=== PATIENT | female | born 1965 | race Caucasian/White ===

== ENCOUNTER 2019-06-21 12:24 | Outpatient (CLI) | payer OTHER, SELFPAY ==
--- NOTE | ~2019-06-21 | MM_ITS ---
EXAMINATION: MM stereotactic bx RT, Specimen Radiograph, Tissue Marker Clip Placement, Unilateral Niranjan mogram DATE: 06/21/2019 14:57 INDICATION: Abnormal mammogram: Upper-outer right breast microcalcifications. TECHNIQUE AND FINDINGS: The risks and potential benefits of the procedure were discussed with the patient and written informe d consent was obtained. Timeout procedure was performed. The patient was placed in the prone position on the dedicated stereotactic table with the right breast in craniocaudal compression, and the area of interest was localized and targeted utilizing digital imaging with stereotaxis. After sterile preparation of the skin, 1% lidocaine was utilized for local anesthesia at the skin pun cture site and 1% lidocaine with epinephrine was utilized for deeper local anesthesia/is about the bi opsy site. A 9G [employer] vacuum assisted biopsy needle was advanced to the level of the calcification o f interest from a cephalad/caudal/medial/lateral approach utilizing stereotactic guidance and a total of 16 tissue core biopsies were obtained. A specimen radiograph demonstrates that the calcifications of interest are included within the tissue cores. A tissue marker clip was then placed at the biopsy site. A digital mammographic exposure co nfirmed the successful deployment of the biopsy marker. The needle was removed and hemostasis was ac hieved. A sterile bandage was applied. The patient tolerated the procedure well and there is no manda dence of significant immediate complication. The patient was given verbal as well as written postpro cedural instructions prior to discharge from the department. Tissue cores were submitted to surgical pathology for histologic analysis. A 2-view right unilateral digital mammogram was obtained post procedure, demonstrating the tissue mar ker clip in expected position. IMPRESSION: 1. Successful stereotactic biopsy of right breast microcalcifications, followed by tissue marker cl ip placement. Please refer to pathology report for histologic analysis. Reviewed, dictated and finalized at [facility]. Reviewed, dictated and finalized at location A. OR DIGITAL DESIGNER IMPRESSION: 1. Successful stereotactic biopsy of right breast microcalcifications, follow ed by tissue marker clip placement. Please refer to pathology report for histo logic analysis.
--- NOTE | ~2019-06-21 | MM_ITS ---
MM post biopsy invasive RT DATE: 06/21/2019 14:43 INDICATION: Post stereotactic biopsy mammogram TECHNIQUE: Digital ML and cc views of right breast obtained following stereotactic breast biopsy COMPARISON: 06/21/2019 right breast stereotactic biopsy images FINDINGS: A biopsy marker is present in the mid to upper outer right breast. The microcalcifications of interest from a longer present within the breast. IMPRESSION: Successful removal of microcalcifications in the posterior aspect of the upper outer quad rant of the right breast by stereotactic biopsy, successful deployment of biopsy marker Reviewed, dictated and finalized at [facility]. Reviewed, dictated and finalized at location A. ARCH DIRECTOR IMPRESSION: Successful removal of microcalcifications in the posterior aspect o f the upper outer quadrant of the right breast by stereotactic biopsy, successf ul deployment of biopsy marker
--- NOTE | ~2019-06-21 | MM_ITS ---
MM stereotactic specimen RT DATE: 06/21/2019 14:43 INDICATION: Microcalcifications upper outer right breast TECHNIQUE: Digital mammographic exposure of stereotactic biopsy specimen tissue COMPARISON: 06/21/2019 stereotactic biopsy images FINDINGS: Multiple microcalcifications of interest are present within the specimen tissue IMPRESSION: Successful stereotactic biopsy yielding multiple microcalcifications of interest Reviewed, dictated and finalized at [facility]. Reviewed, dictated and finalized at location [facility]. L NET MAKER IMPRESSION: Successful stereotactic biopsy yielding multiple microcalcification s of interest
== END 2019-06-21 12:25 | disposition home or self-care (01) ==
PROVIDERS: PCP Family Medicine; Visit Provider Family Medicine
DX: R92.8 Other abnormal and inconclusive findings on diagnostic imaging of breast (principal)
CPT/HCPCS: 19081; 88305

== ENCOUNTER 2019-08-27 06:34 | Outpatient (CLI) | payer OTHER, SELFPAY ==
[2019-08-27 07:15] LABS: Hematocrit 40.7 % (37.0-47.0); Hemoglobin 13.2 g/dL (12.0-15.0); Mean Corpuscular HGB Conc 32.4 g/dl (32-36); Mean Corpuscular Hemoglobin 30.3 pg (26-34); Mean Corpuscular Volume 93.3 fl (80-100); Mean Platelet Volume 10.4 fl (7.4-10.4); Platelet Count Result 255 k/mm3 (150-375); Red Blood Count 4.36 M/mm3 (4.2-5.4); Red Cell Distribution Width 12.7 % (11.5-14.5); White Blood Count 5.5 K/mm3 (4.5-10.0)
[2019-08-27 07:29] LABS: Cholesterol 177 mg/dL (0-200); HDL Direct 49 mg/dL; Triglycerides 101 mg/dL (<150)
[2019-08-27 07:40] LABS: LDL Cholesterol Direct 98 mg/dL
== END 2019-08-27 06:35 | disposition home or self-care (01) ==
PROVIDERS: PCP Family Medicine; Visit Provider Family Medicine
DX: E78.1 Pure hyperglyceridemia (principal); E03.9 Hypothyroidism, unspecified; D50.9 Iron deficiency anemia, unspecified
CPT/HCPCS: 36415; 80061; 84443; 85027

== ENCOUNTER 2020-06-19 06:42 | Outpatient (CLI) | payer OTHER, SELFPAY ==
[2020-06-19 07:31] LABS: Hematocrit 40.7 % (37.0-47.0); Hemoglobin 13.6 g/dL (12.0-15.0); Mean Corpuscular HGB Conc 33.4 g/dl (32-36); Mean Corpuscular Hemoglobin 30.4 pg (26-34); Mean Corpuscular Volume 91.1 fl (80-100); Mean Platelet Volume 10.6 fl (7.4-10.4); Platelet Count Result 247 k/mm3 (150-375); Red Blood Count 4.47 M/mm3 (4.2-5.4); White Blood Count 5.1 K/mm3 (4.5-10.0)
[2020-06-19 07:39] LABS: Alanine Aminotransferase 28 U/L (4-35); Albumin Level 4.3 g/dL (3.5-5.1); Alkaline Phosphatase 51 U/L (38-126); Anion Gap 3 mmol/L (8-16); Aspartate Amino Transferase 32 U/L (14-36); Bilirubin,Total 0.6 mg/dL (0.2-1.3); Blood Urea Nitrogen 18 mg/dL (7-17); Calcium 8.9 mg/dL (8.4-10.2); Carbon Dioxide 29 mmol/L (22-30); Chloride 108 mmol/L (98-107); Cholesterol 172 mg/dL (0-200); Estimated Glomerular Filt Rate > 60; Glucose 97 mg/dL (65-105); HDL Direct 53 mg/dL; Potassium 4.7 mmol/L (3.4-5.0); Sodium 140 mmol/L (137-145); Triglycerides 105 mg/dL (<150)
[2020-06-19 07:50] LABS: LDL Cholesterol Direct 85 mg/dL
== END 2020-06-19 06:43 | disposition home or self-care (01) ==
PROVIDERS: Family Provider Family Medicine; PCP Family Medicine; Visit Provider Family Medicine
DX: D50.9 Iron deficiency anemia, unspecified (principal); E03.9 Hypothyroidism, unspecified; R73.03 Prediabetes
CPT/HCPCS: 36415; 80053; 80061; 85027

== ENCOUNTER 2020-06-25 07:32 | Outpatient (CLI) | payer OTHER, SELFPAY | END 2020-06-25 07:33 | disposition home or self-care (01) | PROVIDERS: PCP Family Medicine; Visit Provider Family Medicine | DX: E03.9 Hypothyroidism, unspecified (principal) | CPT/HCPCS: 36415; 84443 ==

== ENCOUNTER 2020-08-19 14:25 | Outpatient (CLI) | payer OTHER, SELFPAY | END 2020-08-19 14:26 | disposition home or self-care (01) | LOC: ANHAUDIO 14:27 | PROVIDERS: PCP Family Medicine; Referring Provider Family Medicine; Visit Provider Family Medicine | DX: H91.93 Unspecified hearing loss, bilateral (principal); H93.19 Tinnitus, unspecified ear | CPT/HCPCS: 92557; 92567 ==

== ENCOUNTER 2020-10-13 05:28 | Emergency (ER) | payer OTHER, SELFPAY ==
--- NOTE | ~2020-10-13 | XR_ITS ---
EXAMINATION: XR ankle LT min 3V DATE: 10/13/2020 06:11 INDICATION: Left ankle pain, initial encounter TECHNIQUE: Anteroposterior, lateral, mortise, and additional oblique view of the ankle were obtained. COMPARISON: None. FINDINGS: There is an acute, traumatic, closed, oblique fracture of the lateral malleolus at the leve l of the tibial plafond. Bone alignment is normal. There is lateral soft tissue swelling of ankle. No additional acute osseous findings are evident. A plantar calcaneal enthesophyte is noted. IMPRESSION: 1. Acute fracture of the lateral malleolus at the level of the tibial plafond and. Reviewed, dictated and finalized at location A. IMPRESSION: 1. Acute fracture of the lateral malleolus at the level of the tibial plafond a nd.
[2020-10-13 05:35] VITALS: BP 119/76; PULSE 71; RESP 16; TEMP 36.4; O2SAT 99
--- NOTE | 2020-10-13 05:49 | PC.NURSE ---
Hematoma to Lt check. Skin intact. No LOC. No neck pain. A/O x 3. No vision changes. No n/v. Pt with swelling to Lt ankle. No deformity. Minor abrasion to Lt knee without swelling or deformity. Brisk cap refill. Pt was going after her dog and fell down 3 stairs.
--- NOTE | 2020-10-13 05:53 | ED.FALL ---
HPI - Fall General Chief Complaint: Fall Stated Complaint: pt fell down 3 stairs chasing dog. pt hurt left a Time Seen by Provider: 10/13/20 05:42 History of Present Illness HPI Narrative: 55 yo female presents to the ED after a fall. She was chasing her dog when she tripped and fell down 3 stairs. She twisted her left ankle and has moderate pain and swelling at the latereal maleolus. She has been able to bear some weight and move the ankle. She also hit left knee. She has a small abrasion and minimal pain. She did strike her left cheek. She has a small bruise and nosignificant pain. No LOC headache, confusion blood thinners. Related Data Home Medications Medication Instructions Recorded Confirmed multivitamin 1 tablet PO DAILY 07/13/19 09/09/20 Allergies Allergy/AdvReac Type Severity Reaction Status Date / Time No Known Drug Allergies Allergy Unknown unknown Verified 09/09/20 16:10 shellfish derived Allergy Unknown unknown Verified 09/09/20 16:10 Review of Systems Review of Systems: All systems reviewed & are unremarkable except as noted in HPI and below Cardiovascular: Cardiovascular: Denies chest pain Respiratory: Respiratory: Denies dyspnea Neurologic: Denies confusion, Denies dizziness, Denies syncope, Denies headache(s), Denies numbness and Denies weakness Hematologic/Lymphatic: Hematologic/Lymphatic: Denies easy bleeding and Denies easy bruising PMFSH Past Medical History Medical History (Updated 10/13/20 @ 18:07 by Benoit Stokes MD) Hypertriglyceridemia Hypothyroidism (acquired) Prediabetes Family History Family History Mother Family history of malignant neoplasm of breast in first degree relative, Onset Age: 86 Hypertension, Onset Age: 86 Family history of cardiovascular disease, Onset Age: 86 Family history of kidney disease, Onset Age: 86 Family history of congestive heart failure, Onset Age: 86 Father Family history of Alzheimer's disease Social History Social History Smoking status: Never smoker Alcohol intake: current Exam Const: General: healthy appearing, no acute distress and alert Orientation/consciousness: patient oriented x3 HENMT: Other: small bruise and minimal swelling to left maxilla Eyes: EOM: EOMs intact bilaterally Neck: Neck: normal visual inspection Resp: Effort & Inspection: normal respiratory effort Auscultation: clear to auscultation bilaterally, no rales, no rhonchi and no wheezes Cardio: Jugular venous distension: no JVD Rate: regular rate Rhythm: regular rhythm Heart sounds: no murmurs Other: 2 + left DP, PT GI: GI Palp: Yes Soft to palpation and No Tenderness to palpation present (GI) Skin: General skin exam: normal color Other: abrasion to left knee Neuro: General: patient oriented x3 and moves all extremities Speech: normal speech Other: distal PMS intact Extrem: General: no edema Other: Swelling and tenderness to left lateral malleolus Psych: Appearance: well kempt Affect: normal affect Course Vital Signs Vital signs: Vital Signs Temperature 36.4 C 10/13/20 05:35 Pulse Rate 71 10/13/20 05:35 Respiratory Rate 16 10/13/20 05:35 Blood Pressure 119/76 10/13/20 05:35 Pulse Oximetry 99 10/13/20 05:35 Temperature 36.4 C 10/13/20 05:35 Pulse Rate 68 10/13/20 07:02 Respiratory Rate 18 10/13/20 07:02 Blood Pressure 124/71 10/13/20 07:02 Pulse Oximetry 98 10/13/20 07:02 Procedures Orthopedic Splinting/Casting Injury #1: Side: left Lower Extremity Injury Location: ankle Lower Extremity Immobilizer: posterior splint Splint: customized in ED OCL: short leg Pre-Procedure Neuro Vascular Exam: normal Post-Procedure Neuro Vascular Exam: normal MDM - Fall MDM Narrative Medical decision making narrative: Minimal hea
--- NOTE | 2020-10-13 06:45 | PC.NURSE ---
Splint applied to Lt ankle. Pt tolerated procedure well.
[2020-10-13 07:02] VITALS: BP 124/71; PULSE 68; RESP 18; O2SAT 98
== END 2020-10-13 07:02 | disposition home or self-care (01) ==
PROVIDERS: Emergency Provider Emergency Medicine; PCP Family Medicine
DX: S82.65XA Nondisplaced fracture of lateral malleolus of left fibula, initial encounter for closed fracture (principal); E03.9 Hypothyroidism, unspecified; R73.03 Prediabetes; E78.1 Pure hyperglyceridemia; W10.9XXA Fall (on) (from) unspecified stairs and steps, initial encounter
CPT/HCPCS: 29515; 73610; 99284

== ENCOUNTER 2020-10-23 14:41 | Outpatient (CLI) | payer OTHER, SELFPAY ==
[2020-10-23 16:55] LABS: Vitamin D 25 Hydroxy 34.5 ng/mL
== END 2020-10-23 14:42 | disposition home or self-care (01) ==
LOC: ANHLAB 14:42
PROVIDERS: PCP Family Medicine; Visit Provider Orthopaedic Surgery
DX: E55.9 Vitamin D deficiency, unspecified (principal)
CPT/HCPCS: 36415; 82306

== ENCOUNTER 2020-12-18 14:30 | Outpatient (RCR) | payer OTHER, SELFPAY | END 2020-12-18 23:59 | disposition home or self-care (01) | LOC: ANHAUDIO 14:30 | PROVIDERS: PCP Family Medicine; Visit Provider Family Medicine | DX: Z46.1 Encounter for fitting and adjustment of hearing aid (principal) | CPT/HCPCS: 99199; V5261 ==

== ENCOUNTER 2021-01-09 14:00 | Outpatient (RCR) | payer OTHER, SELFPAY ==
--- NOTE | 2020-12-10 15:20 | PTOPEVAL ---
Thank you for referring Gisell Schwab to [facility].? The patient is scheduled to be seen for therapy? 2 x/week for 4 weeks. Please review, sign, date and return this plan of care MARSHALL. I agree with and certify that the following plan of care is medically necessary. Referring Physician Date Attending Provider: Kadeem Soler MD Problem Diagnosis left malleolus fracture Onset 10/13/20 Additional Evaluation Detail She was walking down the steps at home when she rolled her ankle landing on the ground. She heard a pop in her ankle. She was placed in a boot, but non-weight bearing. Prior to injury she went to the park for walking and gardening at home. 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 She is Family returned to work on 12/01/20 since she was release to [employer]. She is limited with walking, steps, ankle motion. She has increased knee pain since walking with the boot. She has been performing HEP since 03/12. 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 Diagnostic Tests X-Rays For This Problem Yes: Acute fracture of the lateral malleolus at the level of the tibial plafond Pain Assessment Self Report Pain Assessment Left Ankle(s) Reported Pain Level 2 Lowest Pain Intensity 2 Greatest Pain Intensity 7 Lower Extremity Range of Motion Ankle/Foot Range of Motion Left Ankle Dorsiflexion With Knee Extension 0 - Active Ankle Plantarflexion Range of Motion - 35 Active Ankle Eversion Range of Motion - Active 0 Ankle Eversion Range of Motion - Passive 15 Ankle Inversion Range of Motion - Active 20 Ankle Inversion Range of Motion - 35 Passive Ankle/Toe Range of Motion Limitations Edema,Muscle Length tightness Pain,Soft Tissue restriction Foot/Toe Range of Motion Comments great toe ext: 25 dg, passive: 35 dg Lower Extremity Muscle Strength Testing Hip Strength Left Hip Flexion Strength 4+ Good + Hip Extension Strength 4 Good Hip Abduction Strength 3+ Fair + Knee Strength Left Knee Flexion Strength 4+ Good + Knee Extension Strength 4+ Good + Ankl
--- NOTE | 2021-01-09 16:01 | PTOPEVAL ---
Physical Therapy progress note/discharge note Thank you for referring Gisell Schwab to [facility].? Gisell has received 9 therapy visits to address ankle limitations following fracture. She demonstrates improved ankle motion, leg strength and ability to perform daily task. She has achieved her therapy goals. Will DC skilled therapy services at this time. Please review, sign, date and return this discharge summary MARSHALL. I agree with and certify that the following plan of care is medically necessary. Referring Physician Date Attending Provider: Kadeem Soler MD Problem ankle fracture Onset 10/13/20 Additional Evaluation Detail She was walking down the steps at home when she rolled her ankle landing on the ground. She heard a pop in her ankle. She was placed in a boot, but non-weight bearing. Prior to injury she went to the park for walking and gardening at home. Pain Assessment Left Ankle(s) Reported Pain Level 1 Pain Description Aching Lowest Pain Intensity 1 Greatest Pain Intensity 3 Lower Extremity Range of Motion Ankle/Foot Range of Motion Left Ankle Dorsiflexion With Knee Extension 8 - Active Ankle Plantarflexion Range of Motion - 50 Active Ankle Eversion Range of Motion - Active 25 Ankle Inversion Range of Motion - Active 34 Foot/Toe Range of Motion Comments great toe ext: 25 dg, passive: 35 dg Lower Extremity Muscle Strength Testing Hip Strength Left Hip Flexion Strength 5 Normal Hip Extension Strength 5 Normal Hip Abduction Strength 4- Good - Ankle Strength Left Ankle Dorsiflexion Strength 5 Normal Ankle Plantarflexion Strength 3+ Fair + Ankle Eversion Strength 5 Normal Ankle Inversion Strength 5 Normal Ankle Strength Comments no pain 10 orestes heel raises 3 partial range single heel raises Special Tests-Lower Extremity Trendelenburg Sign Positive Left,Positive Right Hip Special Test Comments single leg stance: right 26 sec, left 30 sec, slight decreased LE control tandem stance: right front: 30 sec, left 30 sec, improved control of trunk and LE Extremity Circumference Assessment Circumference Assessment Location Left Body Part Ankle Circumference Comments sup to lateral mal: 23 cm right and 22.5 cm left Stair Clim
== END 2021-01-12 11:52 | disposition home or self-care (01) ==
LOC: ANHPT 14:00
PROVIDERS: PCP Family Medicine; Visit Provider Orthopaedic Surgery
DX: S82.62XD Displaced fracture of lateral malleolus of left fibula, subsequent encounter for closed fracture with routine healing (principal)
CPT/HCPCS: 97035; 97110; 97112; 97140; 97161

== ENCOUNTER 2021-04-15 08:00 | Outpatient (RCR) | payer OTHER, SELFPAY | END 2021-04-15 23:59 | disposition home or self-care (01) | LOC: ANHAUDIO 08:00 | PROVIDERS: PCP Family Medicine; Visit Provider Family Medicine | DX: Z46.1 Encounter for fitting and adjustment of hearing aid (principal) | CPT/HCPCS: 99199 ==

== ENCOUNTER 2021-07-14 09:20 | Outpatient (CLI) | payer OTHER, SELFPAY ==
[2021-07-14 09:39] LABS: Basophils Absolute Auto 0.1 K/mm3 (0.0-0.1); Basophils Percent Auto 1.1 % (0.2-1.2); Eosinophils Absolute Auto 0.2 K/mm3 (0-0.3); Eosinophils Percent Auto 4.4 % (0-4.4); Hemoglobin 13.2 g/dL (12.0-15.0); Immature Granulocyte Absolute 0.01 K/mm3 (0.00-0.031); Immature Granulocyte Percent A 0.2 % (0-0.5); Lymphocytes Absolute Auto 1.65 K/mm3 (0.9-3.2); Lymphocytes Percent Auto 36.3 % (18.3-44.2); Mean Corpuscular HGB Conc 33.8 g/dl (32-36); Mean Corpuscular Hemoglobin 30.5 pg (26-34); Mean Corpuscular Volume 90.1 fl (80-100); Mean Platelet Volume 10.2 fl (7.4-10.4); Monocytes Absolute Auto 0.4 K/mm3 (0.1-0.6); Monocytes Percent Auto 9.7 % (2.6-8.5); Neutrophils Absolute Auto 2.2 K/mm3 (1.3-6.7); Neutrophils Percent Auto 48.3 % (45.5-73.1); Platelet Count Result 239 k/mm3 (150-375); Red Blood Count 4.33 M/mm3 (4.2-5.4); Red Cell Distribution Width 12.7 % (11.5-14.5); White Blood Count 4.5 K/mm3 (4.5-10.0)
[2021-07-14 10:23] LABS: Thyroid Stimulating Hormone 0.433 uIU/mL (0.465-4.680)
== END 2021-07-14 09:21 | disposition home or self-care (01) ==
LOC: ANHLAB 09:20
PROVIDERS: PCP Family Medicine; Visit Provider Family Medicine
DX: R73.03 Prediabetes (principal); E03.9 Hypothyroidism, unspecified
CPT/HCPCS: 36415; 84443; 85025

== ENCOUNTER 2022-07-24 11:02 | Emergency (ER) | payer OTHER, SELFPAY ==
--- NOTE | 2022-07-24 12:44 | ED.GENADULT ---
HPI - General Adult General Chief complaint: Back Pain/Injury Stated complaint: Low back pain Time Seen by Provider: 07/24/22 12:44 Source: patient Mode of arrival: ambulatory Limitations: no limitations History of Present Illness HPI narrative: 57-year-old female patient presents to the [facility] with complaints of low back pain that started about 5 days ago. Patient denies any injury or trauma that she is aware of that would have caused the back pain. Patient states the back pain, came on suddenly. Patient present describes as a very tight feeling to go along the lower back not necessarily on 1 side or the other. Denies any numbness or tingling down the legs. Denies any loss of bowel or bladder control. Patient states she has tried taking 400 mg of Motrin every 8 hours that does not seem to be helping for the pain. Patient states she has also tried icing the back without much relief. Related Data Allergies Allergy/AdvReac Type Severity Reaction Status Date / Time No Known Drug Allergies Allergy Unknown unknown Verified 07/24/22 13:04 shellfish derived Allergy Unknown unknown Verified 07/24/22 13:04 Review of Systems Review of Systems: CONSTITUTIONAL: Denies fever, chills, or sweats. EYES: Denies visual changes, redness, or discharge. ENT: Denies rhinorrhea, congestion, sore throat, or otalgia. CARDIOVASCULAR: Denies chest pain, palpitations, or edema. RESPIRATORY: Denies cough or dyspnea. GASTROINTESTINAL: Denies abdominal pain, nausea, vomiting, or diarrhea. GENITOURINARY: Denies dysuria or hematuria. SKIN: Denies rash or itching. MUSCULOSKELETAL: positive low back pain, denies joint pain, or myalgia. NEUROLOGIC: Denies headache, numbness, or weakness. PSYCHIATRIC: Denies anxiety or depression. 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 Hypertriglyceridemia Hypothyroidism (acquired) Hypothyroidism (acquired) Iron deficiency anemia, unspecified Keratoacanthoma of forearm Prediabetes Squamous cell carcinoma, arm Surgical History Surgical History (Updated 07/24/22 @ 12:56 by SANDY Pichardo) Hx of cholecystectomy Family History Family History Mother Family history of malignant neoplasm of breast in first degree relative, Onset Age: 86 Hypertension, Onset Age: 86 Family history of cardiovascular disease, Onset Age: 86 Family history of kidney disease, Onset Age: 86 Family history of congestive heart failure, Onset Age: 86 Father Family history of Alzheimer's disease Social History Social History Alcohol intake: current Gender identity (if verbalized by the patient): Female Comments at the time of my signature I agree with nursing past medical history, surgical, social, and family history. There is no relevant family history pertinent to the presenting complaint. Exam Narrative: GENERAL: Well-appearing, well-nourished, and in no acute distress. HEAD: Normocephalic, atraumatic. EYES: PERRLA and EOMI. ENT: Nares clear, no rhinorrhea or epistaxis. Mucous membranes moist. NECK: Supple. No lymphadenopathy CHEST: Clear to auscultation. No respiratory distress. HEART: Regular rate and rhythm. No murmur heard. Normal peripheral pulses. ABDOMEN: Soft, nontender, nondistended, normal active bowel sounds. EXTREMITIES: Normal range of motion. No edema. BACK: Patient is able to ambulated without assistance. Pt is seated on the stretcher. No surface trauma noted. No muscle tenderness to Palpation. No spasm or mass. No step-offs or deformity noted to the cervical, thoracic or lumbar spine to firm Palpation at the midline. No CVA tenderness to percussion. No saddle anesthesia. negative straight leg raise. ROM: able
[2022-07-24 13:02] VITALS: BP 152/79; PULSE 60; RESP 16; TEMP 36.3; O2SAT 99
== END 2022-07-24 13:36 | disposition home or self-care (01) ==
PROVIDERS: Emergency Provider Nurse Practitioner Family; PCP Family Medicine
DX: S39.012A Strain of muscle, fascia and tendon of lower back, initial encounter (principal); X58.XXXA Exposure to other specified factors, initial encounter; E78.1 Pure hyperglyceridemia; E03.9 Hypothyroidism, unspecified; D50.9 Iron deficiency anemia, unspecified; R73.03 Prediabetes; Z85.828 Personal history of other malignant neoplasm of skin
CPT/HCPCS: 81003; 99213; G0463

== ENCOUNTER 2023-04-11 07:30 | Outpatient (CLI) | payer OTHER, SELFPAY ==
[2023-04-11 08:00] LABS: Basophils Absolute Auto 0.1 K/mm3 (0.0-0.1); Basophils Percent Auto 1.2 % (0.2-1.2); Eosinophils Absolute Auto 0.2 K/mm3 (0-0.3); Eosinophils Percent Auto 4.4 % (0-4.4); Hematocrit 43.5 % (37.0-47.0); Hemoglobin 14.1 g/dL (12.0-15.0); Immature Granulocyte Absolute 0.01 K/mm3 (0.00-0.031); Immature Granulocyte Percent A 0.2 % (0-0.5); Lymphocytes Percent Auto 33.3 % (18.3-44.2); Mean Corpuscular HGB Conc 32.4 g/dl (32-36); Mean Corpuscular Hemoglobin 30.5 pg (26-34); Mean Platelet Volume 10.1 fl (7.4-10.4); Monocytes Absolute Auto 0.5 K/mm3 (0.1-0.6); Monocytes Percent Auto 9.6 % (2.6-8.5); Neutrophils Absolute Auto 2.5 K/mm3 (1.3-6.7); Neutrophils Percent Auto 51.3 % (45.5-73.1); Platelet Count Result 235 k/mm3 (150-375); Red Blood Count 4.63 M/mm3 (4.2-5.4); Red Cell Distribution Width 12.8 % (11.5-14.5); White Blood Count 4.8 K/mm3 (4.5-10.0)
[2023-04-11 08:13] LABS: Potassium 4.1 mmol/L (3.4-5.0)
[2023-04-11 08:14] LABS: Alanine Aminotransferase 25 U/L (6-35); Albumin Level 4.7 g/dL (3.5-5.1); Alkaline Phosphatase 56 U/L (38-126); Anion Gap 11 mmol/L (8-16); Aspartate Amino Transferase 27 U/L (14-36); Bilirubin,Total 0.9 mg/dL (0.2-1.3); Blood Urea Nitrogen 21 mg/dL (7-17); Calcium 9.4 mg/dL (8.4-10.2); Carbon Dioxide 26 mmol/L (22-30); Chloride 103 mmol/L (98-107); Cholesterol 209 mg/dL (0-200); Estimated Glomerular Filt Rate > 60; Glucose 96 mg/dL (65-110); HDL Direct 54 mg/dL; Sodium 140 mmol/L (137-145); Triglycerides 130 mg/dL (<150)
[2023-04-11 08:24] LABS: LDL Cholesterol Direct 104 mg/dL
[2023-04-11 08:30] LABS: Hemoglobin A1C 5.2 % (<5.7)
[2023-04-11 08:58] LABS: Thyroid Stimulating Hormone Reflex 0.707 uIU/mL (0.465-4.68)
== END 2023-04-11 07:31 | disposition home or self-care (01) ==
LOC: ANHLAB 07:32
PROVIDERS: PCP Family Medicine; Visit Provider Family Medicine
DX: E78.5 Hyperlipidemia, unspecified (principal); E03.9 Hypothyroidism, unspecified; D05.10 Intraductal carcinoma in situ of unspecified breast
CPT/HCPCS: 36415; 80053; 80061; 82728; 83036; 84443; 85025

== ENCOUNTER 2023-04-22 02:25 | Day surgery (SDC) | payer OTHER, SELFPAY ==
[2023-04-08 09:07] VITALS: BMI 32.1
--- NOTE | 2023-04-20 10:20 | SUR.PREOP ---
Patient called regarding upcoming procedure. Reviewed preop instructions, appointment times, and procedure prep.
[2023-04-22 10:17] VITALS: BP 158/77; PULSE 85; RESP 16; TEMP 36.6; O2SAT 99
[2023-04-22] MEDS: LACTATED RINGERS 1,000 ML 150 ML IV CONT (10:30)
--- NOTE | 2023-04-22 10:41 | PM.HPGS ---
History of Present Illness History of Present Illness Consent: Risks, benefits, and alternatives have been discussed and questions answered. Patient agrees to proceed with procedure. Chief complaint: neoplasm screening Narrative: Gisell Schwab is a 57 year old female Presents for screening colonoscopy. Patient's current weight appetite and bowel movements are normal. Patient denies abdominal pain. She has had no bleeding. Family history noncontributory. Previous colonoscopy 10 years ago was unremarkable. Review of Systems Review of Systems: Review of systems noncontributory. 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 Hypertriglyceridemia Hypothyroidism (acquired) Hypothyroidism (acquired) Iron deficiency anemia, unspecified Keratoacanthoma of forearm Prediabetes Squamous cell carcinoma, arm Surgical History Surgical History Hx of cholecystectomy Family History Family History Mother Family history of malignant neoplasm of breast in first degree relative, Onset Age: 86 Hypertension, Onset Age: 86 Family history of cardiovascular disease, Onset Age: 86 Family history of kidney disease, Onset Age: 86 Family history of congestive heart failure, Onset Age: 86 Father Family history of Alzheimer's disease Social History Social History (Updated 01/20/23 @ 13:32 by Toyin Barrett MA) Smoking status: Never smoker Alcohol intake: current Lack of Transportation: No Current Housing: I Have Housing Concerned About Future Housing: No Difficulty Paying Gas/Electric Bills: No Difficulty Paying for Meds: No Currently Unemployed: No Education: Associate Degree Difficulty w/ Childcare or Family Care: No Gender identity (if verbalized by the patient): Female Spiritual care concerns: No Meds Home Medications and Allergies Home Medications Medication Instructions Recorded Confirmed Type levothyroxine 112 mcg tablet 112 mcg PO DAILY 04/08/23 04/08/23 History Allergies Allergy/AdvReac Type Severity Reaction Status Date / Time No Known Drug Allergies Allergy Unknown unknown Verified 04/22/23 10:16 shellfish derived Allergy Unknown unknown Verified 04/22/23 10:16 Vital Signs Vital Signs - 24 hr 04/22/23 10:17 Temperature 97.9 F Pulse Rate 85 Respiratory Rate 16 Blood Pressure 158/77 H Pulse Oximetry 99 Oxygen Delivery Room Air Exam Narrative: Physical exam reveals patient to be alert. Vital signs stable. HEENT exam is unremarkable. Patient is anicteric. Lungs are clear to auscultation and percussion. Heart is without murmur or extra sounds. Abdomen bowel sounds are present soft nontender with no organomegaly. Digital external rectal exam normal. Assessment and Plan Assessment and plan (1) Colon cancer screening: Code(s): Z12.11 - Encounter for screening for malignant neoplasm of colon Status: Acute Assessment and Plan: Patient presents for screening colonoscopy. She appears to be at average risk for colon polyps.
--- NOTE | 2023-04-22 10:45 | WPDANESEPPF ---
Anes - Initial Pre Proc Eval Procedure: Operation Date: 04/22/23 11:30 Proposed Procedures p Screening Colonoscopy - Miah Dill MD Date/Time: 04/22/23 10:45 Surgeon: Miah Dill MD Pre Op Diagnosis: neoplasm screening Patient Data Age: 57 Gender: F Height: 1.7 m Weight: 89.9 kg Last Vital Signs Temp 97.9 F 04/22/23 10:17 Pulse 85 04/22/23 10:17 Resp 16 04/22/23 10:17 BP 158/77 H 04/22/23 10:17 Pulse Ox 99 04/22/23 10:17 O2 Del Method Room Air 04/22/23 10:17 Allergies Allergy/AdvReac Type Severity Reaction Status Date / Time No Known Drug Allergies Allergy Unknown unknown Verified 04/22/23 10:16 shellfish derived Allergy Unknown unknown Verified 04/22/23 10:16 Home Medications Medication Instructions Recorded Confirmed Type levothyroxine 112 mcg tablet 112 mcg PO DAILY 04/08/23 04/08/23 History Patient hx anesthesia problems: none Family hx anesthesia problems: none Results Review: All pre-operative results and documents have been reviewed as part of the pre-operative evaluation. 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 Hypertriglyceridemia Hypothyroidism (acquired) Hypothyroidism (acquired) Iron deficiency anemia, unspecified Keratoacanthoma of forearm Prediabetes Squamous cell carcinoma, arm Surgical History Surgical History Hx of cholecystectomy Family History Family History Mother Family history of malignant neoplasm of breast in first degree relative, Onset Age: 86 Hypertension, Onset Age: 86 Family history of cardiovascular disease, Onset Age: 86 Family history of kidney disease, Onset Age: 86 Family history of congestive heart failure, Onset Age: 86 Father Family history of Alzheimer's disease Social History Social History (Updated 01/20/23 @ 13:32 by Toyin Barrett MA) Smoking status: Never smoker Alcohol intake: current Lack of Transportation: No Current Housing: I Have Housing Concerned About Future Housing: No Difficulty Paying Gas/Electric Bills: No Difficulty Paying for Meds: No Currently Unemployed: No Education: Associate Degree Difficulty w/ Childcare or Family Care: No Gender identity (if verbalized by the patient): Female Spiritual care concerns: No Anes - Eval Final PreProcedure Day of Procedure 04/22/23 10:45 Patient weight: obese Heart: regular rate and rhythm Lungs: clear to auscultation Airway: Mallampati scale class II Neurological: alert and oriented Last oral intake: >/= 8 hours ASA classification: II Emergent: no Anesthetic plan: proceed Anesthesia type and monitoring: general GIVS and standard monitoring Results Review: All pre-operative results and documents have been reviewed as part of the pre-operative evaluation. Informed Consent: The patient's anesthetic plan and its attendant risks and benefits were discussed with the patient/family/POA. Questions were solicited and answers provided to the satisfaction of the patient/family/POA.
[2023-04-22 11:06] VITALS: BP 122/75; PULSE 88; RESP 22; O2SAT 98
[2023-04-22 11:16] VITALS: BP 130/64; PULSE 78; RESP 22; O2SAT 99
[2023-04-22 11:26] VITALS: BP 128/75; PULSE 70; RESP 25; O2SAT 99
== END 2023-04-22 11:31 | disposition home or self-care (01) ==
PROVIDERS: PCP Family Medicine; Visit Provider Internal Medicine Gastroenterology
PROC: 0DJD8ZZ Inspection of Lower Intestinal Tract, Via Natural or Artificial Opening Endoscopic (ICD-10-PCS; CPT 45378; principal; 2023-04-22 11:30)
DX: Z12.31 Encounter for screening mammogram for malignant neoplasm of breast (principal); K64.8 Other hemorrhoids; K57.30 Diverticulosis of large intestine without perforation or abscess without bleeding; E03.9 Hypothyroidism, unspecified; D50.9 Iron deficiency anemia, unspecified; R73.03 Prediabetes; E66.9 Obesity, unspecified; Z68.31 Body mass index [BMI] 31.0-31.9, adult; Z90.49 Acquired absence of other specified parts of digestive tract; Z85.828 Personal history of other malignant neoplasm of skin; Z82.49 Family history of ischemic heart disease and other diseases of the circulatory system; Z80.3 Family history of malignant neoplasm of breast
CPT/HCPCS: 45378; J2704; J7120

== ENCOUNTER 2023-06-15 09:32 | Outpatient (CLI) | payer OTHER, SELFPAY ==
[2023-06-15 10:19] LABS: Basophils Absolute Auto 0.1 K/mm3 (0.0-0.1); Eosinophils Absolute Auto 0.2 K/mm3 (0-0.3); Eosinophils Percent Auto 3.7 % (0-4.4); Hematocrit 41.6 % (37.0-47.0); Hemoglobin 13.3 g/dL (12.0-15.0); Immature Granulocyte Absolute 0.01 K/mm3 (0.00-0.031); Immature Granulocyte Percent A 0.2 % (0-0.5); Lymphocytes Absolute Auto 1.65 K/mm3 (0.9-3.2); Mean Corpuscular Volume 93.7 fl (80-100); Mean Platelet Volume 11.1 fl (7.4-10.4); Monocytes Absolute Auto 0.4 K/mm3 (0.1-0.6); Monocytes Percent Auto 8.9 % (2.6-8.5); Neutrophils Absolute Auto 2.5 K/mm3 (1.3-6.7); Neutrophils Percent Auto 52.2 % (45.5-73.1); Platelet Count Result 255 k/mm3 (150-375); Red Blood Count 4.44 M/mm3 (4.2-5.4); Red Cell Distribution Width 12.7 % (11.5-14.5); White Blood Count 4.9 K/mm3 (4.5-10.0)
[2023-06-15 10:30] LABS: Alanine Aminotransferase 21 U/L (6-35); Albumin Level 4.6 g/dL (3.5-5.1); Alkaline Phosphatase 63 U/L (38-126); Anion Gap 7 mmol/L (8-16); Aspartate Amino Transferase 26 U/L (14-36); Bilirubin,Total 0.6 mg/dL (0.2-1.3); Blood Urea Nitrogen 20 mg/dL (7-17); Calcium 9.2 mg/dL (8.4-10.2); Carbon Dioxide 30 mmol/L (22-30); Chloride 105 mmol/L (98-107); Cholesterol 205 mg/dL (0-200); Estimated Glomerular Filt Rate > 60; Glucose 93 mg/dL (65-110); HDL Direct 53 mg/dL; Potassium 4.2 mmol/L (3.4-5.0); Sodium 142 mmol/L (137-145); Triglycerides 119 mg/dL (<150)
[2023-06-15 10:41] LABS: Hemoglobin A1C 5.6 % (<5.7); LDL Cholesterol Direct 110 mg/dL
== END 2023-06-15 09:33 | disposition home or self-care (01) ==
LOC: ANHLAB 09:34
PROVIDERS: PCP Family Medicine; Visit Provider Family Medicine
DX: E03.9 Hypothyroidism, unspecified (principal); D50.0 Iron deficiency anemia secondary to blood loss (chronic); R73.03 Prediabetes
CPT/HCPCS: 36415; 80053; 80061; 82728; 83036; 84443; 85025

== ENCOUNTER 2024-03-01 12:59 | Outpatient (CLI) | payer OTHER, SELFPAY ==
--- NOTE | ~2024-03-01 | MM_ITS ---
EXAMINATION: MM diagnostic vipin BI w med HISTORY: Previous benign right breast biopsy. TECHNIQUE: Additional 3-D tomosynthesis images of the breasts were performed and synthetic 2-D images were generated. CAD analysis was submitted and interpreted. COMPARISON: Comparison to multiple prior studies sequentially, with oldest reviewed study dated 11/19. BREAST PARENCHYMAL COMPOSITION: Not dense: There are scattered areas of fibroglandular density. FINDINGS: There are changes of prior breast reduction surgery. There are surgical clips in the right breast. The breasts are stable. No new masses, calcifications or architectural distortion in either b reast to suggest malignancy. IMPRESSION: 1. Stable bilateral mammogram without evidence for malignancy. 2. Routine yearly screening mammogram and regular clinical breast examination are recommended. BI-RADS Category 1: Negative Reviewed, dictated and finalized at location B. IMPRESSION: 1. Stable bilateral mammogram without evidence for malignancy. 2. Routine yearly screening mammogram and regular clinical breast examination a re recommended. BI-RADS Category 1: Negative
== END 2024-03-01 13:00 | disposition home or self-care (01) ==
PROVIDERS: PCP Family Medicine; Visit Provider Family Medicine
DX: R92.8 Other abnormal and inconclusive findings on diagnostic imaging of breast (principal)
CPT/HCPCS: 77062; 77066; G0279

== ENCOUNTER 2024-03-30 14:04 | Outpatient (CLI) | payer OTHER, SELFPAY ==
--- NOTE | ~2024-03-30 | US_ITS ---
EXAM: PELVIC ULTRASOUND HISTORY: Postmenopausal bleeding COMPARISON: 10/21/2008. FINDINGS: UTERUS: 6.7 x 2.9 x 4.4 cm. The endometrial complex measures 4.6 mm. A complex focus of mixed echogenicity is identified within the lower uterine segment RIGHT OVARY: Within the right adnexa is a complex avascular focus of mixed echogenicity measuring 18. 6 x 14.1 x 20.4 mm LEFT OVARY despite prolonged interrogation, the left ovary was not visualized. No free fluid is identified within the pelvis. IMPRESSION: Indeterminate focus of mixed echogenicity within the lower uterine segment. Complex avascular focus of mixed echogenicity within the lower uterine segment. Contrast-enhanced MRI is recommended for further evaluation Reviewed, dictated and finalized at location A. AZZO GRINDER
== END 2024-03-30 14:05 | disposition home or self-care (01) ==
PROVIDERS: PCP Family Medicine; Visit Provider Obstetrics & Gynecology
DX: N95.0 Postmenopausal bleeding (principal)
CPT/HCPCS: 76830; 76856

== ENCOUNTER 2024-05-02 01:27 | Day surgery (SDC) | payer OTHER, SELFPAY ==
[2024-04-23 13:33] VITALS: BMI 30.7
--- NOTE | 2024-04-23 13:39 | PC.NURSE ---
Report to the Outpatient Waiting Room, entrance under the green pavilion located off [facility], at time _1000_ on date _[phone]_. Planned Procedure Time: _1200_.? Time changes happen often and if your time is changed the preop area will call you the afternoon before. - You and your visitor will be asked to self-screen and do not enter if you have any COVID symptoms. Please call surgeon if you need to reschedule. - A mask is optional within the hospital at this time. Patients may have clear liquids (water, carbonated beverages, clear teas, apple juice) until 3 hours prior to surgery with a maximum of 20 ounces. - No food from midnight until time of surgery and no smoking. This includes no chewing gum, candy or mints. Take only the following medications with a SIP of water on the morning of surgery: ___Levothyroxine DO NOT STOP ANY OF YOUR OTHER PRESCRIPTION MEDICATIONS PRIOR TO SURGERY EXCEPT THE FOLLOWING Medications to discontinue per physician ___None Date to take last dose Please no make-up, nail bermudian, hairspray, perfume, deodorant, or body powder the day of surgery.? No jewelry (including any body piercings) or valuables the day of surgery, leave them at home.? Please take a shower or bath the night before, or the morning of, surgery with an antibacterial soap.? Wear comfortable, loose fitting clothing.? - Jewelry must be removed prior to entering the operating room.? Rings and piercings that are not removed may be cut off. - The hospital will not accept responsibility for valuables.? - Please leave all valuables, including medications, at home the day of surgery. If you are going home after surgery, a licensed catshovel driver must drive you home.? - NO public transportation without another adult if you receive anesthesia. - We recommend that an adult stay with you for 24 hours following discharge. - We also recommend that you do not drive, make important decision, drink alcoholic beverages, or take any drugs that were not prescribed by your health care provider for at least 24 hours after your discharge time. Follow any additional instructions given to you from your surgeon. Telephone instructions given to _Gisell___and asked if any additional questions and then verbalized understanding. Patient advised to call surgeon office or pre surgery nurse liaison [phone] if any additional questions.
[2024-05-02 10:28] VITALS: BP 163/78; PULSE 68; RESP 18; TEMP 36.8; O2SAT 96; BMI 31.2
[2024-05-02] MEDS: ACETAMINOPHEN 500 MG TABLET 1000 MG PO (11:11)
[2024-05-02] MEDS: LACTATED RINGERS 1,000 ML 30 ML IV CONT (11:11)
--- NOTE | 2024-05-02 11:21 | PM.IMHP ---
H&P: HPI History of Present Illness Date/Time: 05/02/24 11:21 Chief Complaint: Postmenopausal bleeding Narrative: 58 y/o with an episode of bright red blood after urination. Ultrasound exam shows an endometrial complex that is slightly thickened at 4.6 mm. A complex focus of mixed echogenicity was seen in the lower uterine segment. 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 (HPV) DNA test positive Hypertriglyceridemia Hypothyroidism (acquired) Iron deficiency anemia, unspecified Prediabetes Hypothyroidism (acquired) Surgical History Surgical History History of breast lift History of partial mastectomy Hx of cholecystectomy Family History Family History Mother Family history of malignant neoplasm of breast in first degree relative, Onset Age: 86 Hypertension, Onset Age: 86 Family history of cardiovascular disease, Onset Age: 86 Family history of kidney disease, Onset Age: 86 Family history of congestive heart failure, Onset Age: 86 Father Family history of Alzheimer's disease Social History Social History Smoking status: Never smoker Alcohol intake: current Lack of Transportation: No Current Housing: I Have Housing Concerned About Future Housing: No Difficulty Paying Gas/Electric Bills: No Difficulty Paying for Meds: No Currently Unemployed: No Education: Associate Degree Difficulty w/ Childcare or Family Care: No Living arrangements: with family Gender identity (if verbalized by the patient): Female Spiritual care concerns: No Meds Home Medications and Allergies Home Medications ?Medication ?Instructions ?Recorded ?Confirmed ?Type levothyroxine 112 mcg tablet 112 mcg PO DAILY 04/08/23 05/02/24 History Allergies Allergy/AdvReac Type Severity Reaction Status Date / Time No Known Allergies Allergy Verified 05/02/24 10:25 Vital Signs Vital Signs - 24 hr 05/02/24 10:28 Temperature 36.8 C Pulse Rate 68 Respiratory Rate 18 Blood Pressure 163/78 H Pulse Oximetry 96 Oxygen Delivery Room Air Exam Const: Orientation/consciousness: patient oriented x3 Other: Well-developed, well-nourished female in no acute distress. Neck: Thyroid: thyroid normal Lymphatic: no lymphadenopathy noted (in neck, axilla or inguinal nodes) Resp: Effort & Inspection: normal respiratory effort Auscultation: clear to auscultation bilaterally Cardio: Rate: regular rate Rhythm: regular rhythm Heart sounds: S1 normal heart sound present and S2 normal heart sound present GI: Other: ABD: Soft, nontender, nondistended. No guarding or rebound tenderness. No hepatosplenomegaly. : General: Yes no CVA tenderness Other: External genitalia: normal female hair distribution, without lesion. Urethral meatus: no lesion, non prolapsed. Bladder: no mass, nontender Vagina: well-estrogenized, without lesion or discharge. No cystocele or rectocele. Cervix: no lesion or discharge. Uterus: small, anteverted, freely mobile, nontender Adnexa: no mass or tenderness. Anus/perineum: no lesions, nontender Back/Spine/Pelvis: Back: no CVA tenderness Skin: General skin exam: normal color and no rashes or lesions noted Neuro: General: patient oriented x3 Extrem: Other: Extremities: nontender with no edema Psych: Mental Status: mental status grossly normal Affect: normal affect Assessment and Plan Assessment and plan (1) Postmenopausal bleeding: Code(s): N95.0 - Postmenopausal bleeding Status: Acute Assessment and Plan: A: Postmenopausal bleeding with abnormal pelvic ultrasound. P: Offered hysteroscopy with dilation and sharp curettage. She understands risks of surgery to include risks of anesthesia, risks of pain, infection, bleeding, blood products, thromboembolic phenomena and damage to adjacent structures such as bowel, bladder, ureters, blood vessels and nerves. She understands all these risks and elects to proceed with surgery. (2) Abnormal pelvic ultrasound: Code(s): R93.89 - Abnormal findings on diagnostic imaging of other specified body structures Status: Acute
--- NOTE | 2024-05-02 11:59 | WPDANESEPPF ---
Anes - Initial Pre Proc Eval Procedure: Operation Date: 05/02/24 12:00 Proposed Procedures p Hysteroscopy Dilation and Curettage - Jimenez Sarkar MD Date/Time: 05/02/24 11:59 Surgeon: Jimenez Sarkar MD Pre Op Diagnosis: Post Menopausal Bleeding Patient Data Age: 58 Gender: F Height: 1.68 m Weight: 87.9 kg Last Vital Signs Temp 36.8 C 05/02/24 10:28 Pulse 68 05/02/24 10:28 Resp 18 05/02/24 10:28 BP 163/78 H 05/02/24 10:28 Pulse Ox 96 05/02/24 10:28 O2 Del Method Room Air 05/02/24 10:28 Allergies Allergy/AdvReac Type Severity Reaction Status Date / Time No Known Allergies Allergy Verified 05/02/24 10:25 Home Medications ?Medication ?Instructions ?Recorded ?Confirmed ?Type levothyroxine 112 mcg tablet 112 mcg PO DAILY 04/08/23 05/02/24 History Patient hx anesthesia problems: none Family hx anesthesia problems: none Results Review: All pre-operative results and documents have been reviewed as part of the pre-operative evaluation. 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 Hypertriglyceridemia Hypothyroidism (acquired) Iron deficiency anemia, unspecified Prediabetes Hypothyroidism (acquired) Surgical History Surgical History History of breast lift History of partial mastectomy Hx of cholecystectomy Family History Family History Mother Family history of malignant neoplasm of breast in first degree relative, Onset Age: 86 Hypertension, Onset Age: 86 Family history of cardiovascular disease, Onset Age: 86 Family history of kidney disease, Onset Age: 86 Family history of congestive heart failure, Onset Age: 86 Father Family history of Alzheimer's disease Social History Social History Smoking status: Never smoker Alcohol intake: current Lack of Transportation: No Current Housing: I Have Housing Concerned About Future Housing: No Difficulty Paying Gas/Electric Bills: No Difficulty Paying for Meds: No Currently Unemployed: No Education: Associate Degree Difficulty w/ Childcare or Family Care: No Living arrangements: with family Gender identity (if verbalized by the patient): Female Spiritual care concerns: No Anes - Eval Final PreProcedure Day of Procedure 05/02/24 11:59 Patient weight: overweight Heart: regular rate and rhythm Lungs: clear to auscultation Airway: Mallampati scale class II Neurological: alert and oriented Last oral intake: >/= 8 hours Emergent: no Anesthetic plan: proceed Anesthesia type and monitoring: general Results Review: All pre-operative results and documents have been reviewed as part of the pre-operative evaluation. Informed Consent: The patient's anesthetic plan and its attendant risks and benefits were discussed with the patient/family/POA. Questions were solicited and answers provided to the satisfaction of the patient/family/POA.
--- NOTE | 2024-05-02 12:05 | WPDHPUPDATE1 ---
History and Physical Update Update Date/Time: 05/02/24 12:05 History and Physical has been reviewed, including an updated exam of the patient. There are NO changes in the patient's condition. Risks, benefits, and alternatives have been discussed and questions answered. Patient agrees to proceed with procedure.
[2024-05-02] MEDS: KETOROLAC 30 MG/ML VIAL (*BKC) IV PUSH (12:27)
--- NOTE | 2024-05-02 12:29 | W.PM.PROC2 ---
Procedure Note - Detailed Date of Procedure 05/02/24 Pre-op Diagnosis Post Menopausal Bleeding Post-op Diagnosis Same Procedure Performed Hysteroscopy Dilation and sharp curettage Hysteroscopic resection of small endometrial mass Surgeon Jimenez Sarkar MD Anesthesia MAC and Local (1% lidocaine) Findings Small polyp vs submucous myoma adjacent to the right tubal ostium. Otherwise, atrophic and unremarkable endometrial cavity. Both tubal ostia seen. Description of Procedure The patient was taken to the operating room where she was prepared and draped in the usual sterile fashion in the dorsal lithotomy position. The bladder was drained with a red rubber catheter. A sterile speculum was placed into the vagina. The anterior lip of the cervix was grasped with single-tooth tenaculum. Ten mL of 1% lidocaine was administered in a paracervical block. The cervix was then gently dilated using Hegar dilators until a 7 mm dilator could be passed. Hysteroscopy was performed using sterile saline as a distention medium. Findings are as noted above. The Aveta resector blade was used to excise the small endometrial mass. Sharp curettage was then performed, and endometrial curettings were collected on a Telfa pad and passed off to be sent to pathology. Hemostasis was excellent. Sponge, lap, needle and instrument counts were correct. The patient was awakened and taken to the recovery room in stable condition. I was present and scrubbed through the entire procedure. Implants None Estimated Blood Loss 5 Drains No Packing No Pathology Yes (Endometrial curettings) Complications None Condition Stable Disposition PACU
[2024-05-02 12:31] VITALS: BP 114/83; PULSE 60; RESP 16; O2SAT 100
[2024-05-02] MEDS: LIDOCAINE 1% LOCAL INJ 10 ML VIAL INFILTRATE (12:34)
[2024-05-02 13:00] VITALS: BP 142/74; PULSE 64
[2024-05-02 13:30] VITALS: BP 144/67; PULSE 65
== END 2024-05-02 13:38 | disposition home or self-care (01) ==
PROVIDERS: PCP Family Medicine; Visit Provider Obstetrics & Gynecology
PROC: 0U5B8ZZ Destruction of Endometrium, Via Natural or Artificial Opening Endoscopic (ICD-10-PCS; CPT 58563; principal; 2024-05-02 12:00)
DX: R93.89 Abnormal findings on diagnostic imaging of other specified body structures (principal); N85.8 Other specified noninflammatory disorders of uterus; G89.18 Other acute postprocedural pain; E03.9 Hypothyroidism, unspecified; R73.03 Prediabetes; D50.9 Iron deficiency anemia, unspecified; E78.1 Pure hyperglyceridemia; Z98.890 Other specified postprocedural states; Z90.49 Acquired absence of other specified parts of digestive tract; Z85.3 Personal history of malignant neoplasm of breast; Z85.828 Personal history of other malignant neoplasm of skin; Z80.3 Family history of malignant neoplasm of breast; Z82.49 Family history of ischemic heart disease and other diseases of the circulatory system
CPT/HCPCS: 58558; 88305; A9270; J1100; J1885; J2003; J2250; J2405; J2704; J3010; J7030; J7120

== ENCOUNTER 2024-08-22 07:00 | Outpatient (CLI) | payer OTHER, SELFPAY ==
[2024-08-22 08:00] LABS: Hematocrit 37.8 % (37.0-47.0); Hemoglobin 12.8 g/dL (12.0-15.0); Mean Corpuscular HGB Conc 33.9 g/dl (32-36); Mean Corpuscular Hemoglobin 31.2 pg (26-34); Mean Corpuscular Volume 92.2 fl (80-100); Mean Platelet Volume 10.9 fl (7.4-10.4); Platelet Count Result 237 k/mm3 (150-375); Red Cell Distribution Width 12.6 % (11.5-14.5); White Blood Count 4.3 K/mm3 (4.5-10.0)
[2024-08-22 08:14] LABS: Alanine Aminotransferase 20 U/L (6-35); Albumin Level 4.2 g/dL (3.5-5.1); Alkaline Phosphatase 56 U/L (38-126); Anion Gap 6 mmol/L (4-12); Aspartate Amino Transferase 25 U/L (14-36); Bilirubin,Total 0.8 mg/dL (0.2-1.3); Blood Urea Nitrogen 20 mg/dL (7-17); Carbon Dioxide 28 mmol/L (22-30); Chloride 107 mmol/L (98-107); Estimated Glomerular Filt Rate > 60; Glucose 90 mg/dL (65-110); Sodium 141 mmol/L (137-145)
[2024-08-22 09:21] LABS: Hemoglobin A1C 5.5 % (<5.7)
== END 2024-08-22 07:01 | disposition home or self-care (01) ==
LOC: ANHLAB 07:01
PROVIDERS: PCP Family Medicine; Visit Provider Family Medicine
DX: R73.03 Prediabetes (principal); E03.9 Hypothyroidism, unspecified; D50.0 Iron deficiency anemia secondary to blood loss (chronic)
CPT/HCPCS: 36415; 80053; 83036; 84443; 85027